=== PATIENT | male | born 1985 | race African-American/Black ===

== ENCOUNTER 2023-08-10 12:39 | Emergency (ER) | payer SELFPAY ==
[~2023-08-10] VITALS: Ht 175.3 cm; Wt 82.0 kg
[2023-08-10 12:43] VITALS: O2SAT 98
[2023-08-10] MEDS ORDERED: IBUPROFEN 800MG TABLET PO ONE (13:30)
[2023-08-10] MEDS ORDERED: IBUPROFEN 400MG TABLET PO NR (13:45)
[2023-08-10] MEDS ORDERED: IBUP-2030 MT (15:27)
[2023-08-10] MEDS ORDERED: CYCL5TAB MT (15:27)
[2023-08-10 15:52] VITALS: BP 127/64; PULSE 61; RESP 16; TEMP 97.9
== END 2023-08-10 15:53 | disposition home or self-care (01) ==
LOC: ER 12:39
DX: M54.6 Pain in thoracic spine (principal); V49.49XA Driver injured in collision with other motor vehicles in traffic accident, initial encounter; Y93.89 Activity, other specified; Y92.89 Other specified places as the place of occurrence of the external cause; Y99.8 Other external cause status
CPT/HCPCS: 72040; 72100; 99284